=== PATIENT | female | born 1955 | race Caucasian/White ===

== ENCOUNTER 2022-09-01 10:29 | Emergency (ER) | payer OTHER, SELFPAY ==
[2022-09-01 10:38] VITALS: BP 106/73; BP 114/76; PULSE 101; PULSE 103; RESP 18; TEMP 37; O2SAT 95; O2SAT 97; BMI 19.8
--- NOTE | 2022-09-01 10:46 | PC.NURSE ---
pt alert/oriented. reporting very itchy rash on abdomen/flank and arms for several days. No mouth/tongue swelling noted, pt speaking in full sentences and not having any difficulty breathing. Pt reports SOB due to COPD vitals stable. IV inserted by EMS. Pt reports when rash is itching pain is 10/10
[2022-09-01 10:53] VITALS: BP 106/73; PULSE 97; RESP 18; TEMP 37
--- NOTE | 2022-09-01 11:16 | ED.ALLEREA ---
HPI - Allergic Reaction General Chief complaint: Allergic Reaction Stated complaint: ALLERGIC REACTION X2 DAYS,RASH FACE/TORSO PER EMS Time Seen by Provider: 09/01/22 10:44 Source: patient, EMS, RN notes reviewed and old records reviewed Mode of arrival: ambulatory History of Present Illness HPI narrative: 67-year-old female with past medical history of COPD, lung CA, presenting to the ED complaining of pruritic rash to bilateral arms, scalp, and body x 5 days s/p using new exfoliative. Reports sore throat x3 days, resolved at present. Also reports SOB in the morning secondary to her chronic COPD, unchanged. Denies other new exposures/medications, lotions or detergents, known insect bites, SOB/CP at present, sore throat, difficulty swallowing, cough MD complaint: allergic reaction Onset (ago): day(s) Related Data Previous Rx's Medication Instructions Recorded cetirizine 10 mg capsule (Zyrtec) 10 mg PO DAILY PRN allergy 09/01/22 symptoms #14 caps diphenhydramine HCl 25 mg capsule 25 mg PO TID PRN allergic reaction 09/01/22 (Benadryl) #14 caps prednisone 20 mg tablet 40 mg PO DAILY 2 days #4 tabs 09/01/22 Allergies Allergy/AdvReac Type Severity Reaction Status Date / Time No Known Allergies Allergy Verified 09/01/22 11:18 Review of Systems Review of Systems: Constitutional: No Fever, No Chills ENT/Mouth: No Ear Pain, No Nasal Congestion, No Hoarseness, No sore throat, No Rhinorrhea, No Swallowing Difficulty Cardiovascular: No Chest Pain, No SOB Respiratory: No Cough, No Sputum, No Wheezing Gastrointestinal: No Nausea, No Vomiting, No Diarrhea, No Constipation, No Abdominal pain Genitourinary: No Dysuria, No Urinary Frequency, No Hematuria, No Flank Pain Musculoskeletal: No joint pain, No Myalgias, No Joint Swelling Skin: No Skin Lesions, + rash Neuro: No Weakness, No Numbness, No Paresthesias Yes all other systems are reviewed and are negative Constitutional: Constitutional: Reports as per HPI [facility] Past Medical History Attestation statement: The following information was validated with the patient. Medical History COPD (chronic obstructive pulmonary disease) Lung cancer Social History Social History Alcohol intake: never Smoked in Last 30 Days: No Use of substances other than those prescribed or required for medical reasons: Yes Substance Use Type: Marijuana Substance Use Frequency: Occasionally Advance Directives: Yes Advance Directives on File: No Physical Exam ED Vital Signs: Vital Signs - 24 hr 09/01/22 10:38 09/01/22 10:53 Temperature 98.6 F 98.6 F Pulse Rate 101 H 97 Respiratory Rate 18 18 Blood Pressure 106/73 106/73 Pulse Oximetry 97 Oxygen Delivery Method Room Air Room Air BMI result Body Mass Index 19.8 Const General: cooperative, healthy appearing, no acute distress, alert and awake Orientation/consciousness: patient oriented x3 Limitations: no limitations HENMT Head: Yes normal to inspection and Yes atraumatic Ears: hearing grossly normal bilaterally General nose exam: Normal external nose present Face and sinus: Yes normal facial exam Mouth: Normal oral and palatal mucosa present Throat: Yes posterior oropharynx normal, Yes tonsils normal, Yes uvula midline, No peritonsillar mass, No uvula laterally displaced and No uvular edema Eyes General: appearance normal, both eyes and all related structures EOM: EOMs intact bilaterally Neck Neck: Yes normal visual inspection and Yes no meningeal signs Resp Effort & Inspection: normal respiratory effort and no respiratory distress Auscultation: clear to auscultation bilaterally, no crackles, no rales, no rhonchi and no wheezes Cardio Rate: regular rate Heart sounds: S1 normal heart sound present and S2 normal heart sound present GI Inspection: Yes normal to inspection Palpation (GI): Soft to palpation, nontender, no guarding and not rigid Skin Other: + hives noted to bilateral upper extremities and upper back. + excoriations noted to chest. No mucous membrane or palm/sole involvement. No sloughing. No warmth Wounds: no wounds Neuro General: patient oriented x3, tone normal and no meningeal signs Gait exam (Neuro): Normal gait present Extrem General: Yes normal to inspection Course Course Course Narrative: -1242--on re-evaluation patient reports symptomatic improvement. Requesting discharge home. Will DC home with 2 additional days of prednisone, Benadryl, Pepcid recommended close PCP follow-up and discontinuation of new exfoliate. Results discussed with patient including worrisome signs and symptoms and strict return precautions, and when to return to the emergency department. They verbalized understanding and feel safe for discharge at this time. Medications Administered Discontinued Medications Generic Name Dose Route Start Last Admin Trade Name Luisa PRN Reason Stop Dose Admin Diphenhydramine HCl 25 mg 09/01/22 11:41 09/01/22 11:44 Diphenhydramine Hcl 50 Mg/Ml Vial IVPUSH 09/01/22 11:42 25 mg ONCE ONE Administration Famotidine 20 mg 09/01/22 11:18 09/01/22 11:47 Famotidine/Pf 20 Mg/2 Ml Vial IVPUSH 09/01/22 11:19 20 mg ONCE ONE Administration Methylprednisolone Sodium Succinate 125 mg 09/01/22 11:18 09/01/22 11:43 Methylprednisolone Sod Succ 125 Mg/2 Ml Vial IVPUSH 09/01/22 11:19 125 mg ONCE ONE Administration Medical Decision Making Medical Decision Making MDM Narrative: 67-year-old female with past medical history of COPD, lung CA, presenting to the ED complaining of pruritic rash to bilateral arms, scalp, and body x 5 days s/p using new exfoliative. On exam vital signs stable, NAD, nontoxic appearing, oropharynx WNL, uvula midline, talking in complete sentences, handling secretions, lungs CTA. + urticaria/hives noted to bilateral upper extremities and back with excoriations to chest. No sloughing or mucous membrane involvement. Concern for allergic reaction. No evidence of anaphylaxis. Low suspicion for cellulitis Patient received 25 mg of IV Benadryl the EMS plan: IV Solu-Medrol, Benadryl, Pepcid, re-evaluate Please refer to course for remaining clinical decision making, interpretation of labs/imaging results, and discussions with consultants and/or family members. Differential Diagnosis Differential Diagnoses: The differential diagnosis associated with the presentation includes As above Admission/Observation Consideration of admission/observation: Escalation of care including admission/observation considered Lab Data [facility] Lab Attestation statement: I reviewed the patient's lab results. Radiology Impression Discussion of test interpretation with radiology: I have reviewed the radiologist's reading. External Record Review External record reviewed: Inpatient record, Office record, Outpatient record, Prior outpatient labs, Prior outpatient radiology, Primary care record and Outside ED record Discharge Plan Discharge Clinical Impression: Allergic reaction Patient Disposition: Home, Self-Care Instructions: General Allergic Reaction (ED) Additional Instructions: Please avoid new exfoliate which is likely cause of her symptoms Take Benadryl as needed. In addition Zyrtec, Zyrtec will not make you drowsy, Benadryl will make you drowsy, do not drive, drink alcohol, or operate anything while taking Benadryl Take prednisone as prescribed for the next 2 days If symptoms persist or worsen you develop any shortness of breath, throat closing sensation, cough, difficulty breathing return to the ED immediately Prescriptions: New diphenhydramine HCl [Benadryl] 25 mg capsule 25 mg PO TID PRN (Reason: allergic reaction) Qty: 14 0RF Zyrtec 10 mg capsule 10 mg PO DAILY PRN (Reason: allergy symptoms) Qty: 14 0RF prednisone 20 mg tablet 40 mg PO DAILY 2 Days Qty: 4 0RF Referrals: [facility] [Primary Care Provider] - Interventions: ED Discharge Assessment Last Done: 09/01/22 13:28 Discharge Date/Time: 09/01/22 13:28
--- NOTE | 2022-09-01 11:41 | PC.NURSE ---
EMS gave Benadryl 25mg. provider aware.
[2022-09-01] MEDS: methylPREDNISolone Sod Succ 125 MG/2 ML VIAL IVPUSH (11:43)
[2022-09-01] MEDS: diphenhydrAMINE HCL 50 MG/ML VIAL 25 MG IVPUSH (11:44)
[2022-09-01] MEDS: Famotidine/PF 20 MG/2 ML VIAL IVPUSH (11:47)
--- NOTE | 2022-09-01 11:56 | PC.NURSE ---
report given to Teresa CONTRERAS. pt will be going upstairs with transport
== END 2022-09-01 13:28 | disposition home or self-care (01) ==
PROVIDERS: Emergency Provider Emergency Medicine
DX: L50.0 Allergic urticaria (principal); Z79.899 Other long term (current) drug therapy
CPT/HCPCS: 96374; 96375; 99284; J1200; J2930

== ENCOUNTER 2023-06-25 19:16 | Emergency (ER) | payer OTHER, SELFPAY ==
--- NOTE | ~2023-06-25 | XR_ITS ---
Examination: Left shoulder and chest. CLINICAL INDICATION: Fall. COMPARISON: None. TECHNIQUE: Left shoulder 3 views. Chest 2 views. FINDINGS: Left shoulder: The glenohumeral and AC joint is intact. There is a fracture involving lateral clavicle minimal displacement. There is mild soft tissue swelling. Incidental finding of mild left pleural thickening and patchy density with a staple within left upper lobe likely chronic scarring or postoperative changes. CHEST: The lungs are well-expanded and clear acute pneumonic process. There is mild left apical pleural thickening. There is a small surgical staple with left upper lobe density likely chronic scarring or postoperative change. Heart size and pulmonary vascularity is normal. No gross bony abnormality seen. XR/XR shoulder LT min 2V IMPRESSION: 1. Left lateral clavicle fracture with minimal displacement. There is mild soft tissue swelling. 2. No acute process seen in the chest. There is mild left apical pleural thickening. 3. Left upper lobe scarring or postoperative changes. There is a small surgical staple with left upper lobe density.
--- NOTE | ~2023-06-25 | XR_ITS ---
Examination: Left shoulder and chest. CLINICAL INDICATION: Fall. COMPARISON: None. TECHNIQUE: Left shoulder 3 views. Chest 2 views. FINDINGS: Left shoulder: The glenohumeral and AC joint is intact. There is a fracture involving lateral clavicle minimal displacement. There is mild soft tissue swelling. Incidental finding of mild left pleural thickening and patchy density with a staple within left upper lobe likely chronic scarring or postoperative changes. CHEST: The lungs are well-expanded and clear acute pneumonic process. There is mild left apical pleural thickening. There is a small surgical staple with left upper lobe density likely chronic scarring or postoperative change. Heart size and pulmonary vascularity is normal. No gross bony abnormality seen. XR/XR chest 2V IMPRESSION: 1. Left lateral clavicle fracture with minimal displacement. There is mild soft tissue swelling. 2. No acute process seen in the chest. There is mild left apical pleural thickening. 3. Left upper lobe scarring or postoperative changes. There is a small surgical staple with left upper lobe density.
--- NOTE | ~2023-06-25 | CT_ITS ---
CT HEAD WITHOUT IV CONTRAST CT CERVICAL SPINE WITHOUT IV CONTRAST INDICATION: Fall with head strike and pain. COMPARISON: None available. TECHNIQUE: Multidetector CT acquisitions of the head and cervical spine were obtained without IV contrast. Multiplanar reformats were acquired and utilized for image interpretation. This CT examination was performed using dose optimization techniques as appropriate, variously including the following: *Automated exposure control *Adjustment of mA and/or kV according to patient size (this includes techniques or standardized protocols for targeted exams where dose is matched to indication/reason for exam; i.e. 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 There is no intracranial hemorrhage, hydrocephalus, extra-axial surface collection, midline shift, or other herniation pattern. Kim to white matter differentiation is diffusely maintained without evidence of an evolved acute territorial infarct. The basilar cisterns are preserved. No significant soft tissue abnormality. No acute osseous abnormality. The paranasal sinuses and the mastoid air cells are well aerated. CERVICAL SPINE: There are no acute fractures and there are no acute subluxations within the cervical spine. ACDF hardware at C5-C6 with solid appearing interbody arthrodesis. There is a partially imaged surgical clip within the upper left lung with adjacent airspace opacity that should be correlated for any clinical history of pulmonary malignancy surgery and compared to outside chest imaging if available. CT/CT cervical spine wo IV con IMPRESSION: - No acute intracranial abnormality. - No acute osseous abnormality within the cervical spine. ACDF at C5-C6. - There is a partially imaged surgical clip within the upper left lung with adjacent airspace opacity that should be correlated for any clinical history of pulmonary malignancy surgery and compared to outside chest imaging if available.
[2023-06-25 20:19] VITALS: BP 139/95; PULSE 85; RESP 18; TEMP 36.8; O2SAT 98; BMI 17.3
--- NOTE | 2023-06-25 20:26 | ECG_ITS ---
Test Reason : FALL Blood Pressure : / mmHG Vent. Rate : 078 BPM Atrial Rate : 078 BPM P-R Int : 158 ms QRS Dur : 084 ms QT Int : 388 ms P-R-T Axes : 080 033 069 degrees QTc Int : 442 ms Normal sinus rhythm Possible Left atrial enlargement Borderline ECG No previous ECGs available Referred By: Generic ED Physician Electronically Signed By:TOM MONTOYA MD
--- NOTE | 2023-06-25 20:33 | ED.FALL ---
HPI - Fall General Chief Complaint: Fall Stated Complaint: fell,laceration left eye,dizziness Time Seen by Provider: 06/25/23 22:47 Source: patient Mode of arrival: ambulatory Limitations: no limitations History of Present Illness HPI Narrative: Patient comes to the emergency room complaining of a fall. Patient states that she has noticed that a week after her dose of Effexor was increased from 75 mg 250 mg, she has been feeling lightheaded and falling often. Patient states that she has probably fallen about 6 times in the last 2 weeks. Patient is usually able to get up and continue with her day. Today, patient had to crawl to the couch to get up. Patient states that she has left clavicular pain. Patient hit her head and has a laceration lateral to the left eyebrow. Patient complaining of clavicular pain, no headache, no neck pain. Patient states that she does not have any chest pain or shortness of breath, no palpitations, no calf pain. No hip pain Related Data Previous Rx's Medication Instructions Recorded cetirizine 10 mg capsule (Zyrtec) 10 mg PO DAILY PRN allergy 09/01/22 symptoms #14 caps diphenhydramine HCl 25 mg capsule 25 mg PO TID PRN allergic reaction 09/01/22 (Benadryl) #14 caps prednisone 20 mg tablet 40 mg (2 x 20 mg) PO DAILY 2 days 09/01/22 #4 tabs venlafaxine 75 mg capsule,extended 75 mg PO DAILY #10 caps 06/25/23 release 24 hr (Effexor XR) Allergies Allergy/AdvReac Type Severity Reaction Status Date / Time No Known Allergies Allergy Verified 06/25/23 20:19 Review of Systems Review of Systems: Constitutional : No Weight loss, No Fever, No Chills, No Night Sweats, No Fatigue, No Malaise ENT/Mouth : No Hearing loss, No Ear Pain, No Nasal Congestion, No Sinus Pain, No Hoarseness, No sore throat, No Rhinorrhea, No Swallowing Difficulty Eyes: No Eye Pain, No Swelling, No Redness, No Foreign Body, No Discharge, No Vision Changes Cardiovascular : No Chest Pain, No SOB, No Dyspnea on Exertion, No Orthopnea, No Edema, No Palpitations Respiratory : No Cough, No Sputum, No Wheezing, No Smoke Exposure, No Dyspnea Gastrointestinal : No Nausea, No Vomiting, No Diarrhea, No Constipation, No abdominal Pain, No Hematochezia, No Melena Genitourinary : no irregular bleeding, No Dysuria, No Urinary Frequency, No Hematuria, No Urinary Incontinence, No Urgency, No Flank Pain, No Urinary Flow Changes, No Hesitancy Musculoskeletal : No joint pain, No Myalgias, No Joint Swelling Skin : Laceration Neuro : No Weakness, No Numbness, No Paresthesias, No Loss of Consciousness, No Dizziness, multiple episodes of lightheadedness and falls Psych : No Anxiety/Panic, No Depression, No SI/HI/AH/VH, No Social Issues, Heme/Lymph: No Bruising, No Bleeding,No Lymphadenopathy Endocrine : No Polyuria, No Polydipsia, No Temperature Intolerance [facility] Past Medical History Medical History Lung cancer COPD (chronic obstructive pulmonary disease) Social History Social History Alcohol intake: never Substance Use Type: Marijuana Advance Directives: No Advance Directives Information Provided: No Physical Exam Vital Signs: Vital Signs: Last Vital Signs Temp 98.3 F 06/25/23 20:19 Pulse 85 06/25/23 20:19 Resp 18 06/25/23 20:19 BP 139/95 H 06/25/23 20:19 Pulse Ox 98 06/25/23 20:19 O2 Del Method Room Air 06/25/23 20:19 BMI result Body Mass Index 17.3 Const: Other: Appearance: Alert. Oriented X3. No acute distress. Eyes: Pupils equal, round and reactive to light. ENT: Pharynx normal. Neck: Normal inspection. Neck supple. No lymph nodes noted. No crepitus, no C-spine tenderness, no palpable step-offs CVS: Normal heart rate and rhythm. Pulses normal. Normal S1 and S2 Respiratory: No respiratory distress. Breath sounds normal. No Wheezing. No rales Abdomen: Soft and nontender. No rigidity. No distention. Skin: Skin warm and dry. Normal skin color. Normal skin turgor. 1.5 cm laceration to the lateral aspect of the left eyebrow Extremities: No lower extremity edema. No Lacerations. No Rash Neuro: Oriented X 3. No motor deficit. No sensory deficit. Moving all extremities. No slurred speech. CN 2 through 12 grossly intact Psych: calm, cooperative, normal affect Course Course Course Narrative: This is a rapid medical exam. deferrd additional HPI, ROS, PE to primary provider. 68 yo female here with positional dizziness, frequent falls x 2 weeks with recent med changes. Fall today with strike to left shoulder, head. No LOC. NO AC therapy use. Will obtain labs, EKG, CT head/cervical spine, shoulder x-ray VSS Medications Administered Discontinued Medications Generic Name Dose Route Start Last Admin Trade Name Luisa PRN Reason Stop Dose Admin Lidocaine HCl 5 ml 06/25/23 23:06 06/25/23 23:13 Lidocaine Hcl 2 % Mpf 5 Ml Vial INFILTRATI 06/25/23 23:07 Not Given ONCE ONE Lidocaine HCl 5 ml 06/25/23 23:13 06/25/23 23:15 Lidocaine Hcl 1 % Mpf 5 Ml Vial INFILTRATI 06/25/23 23:14 5 ml ONCE ONE Administration Procedures Laceration Laceration 1: Site: face Side (If applicable): left Size (cm): 1.5 Description: linear Depth: simple, single layer Local Anesthetic: lidocaine 1% Amount of anesthesia used (mL): 2 Skin layer closed with: nylon Size (cm): 6-0 Number of sutures: 4 Technique: simple, interrupted Medical Decision Making Medical Decision Making [facility] Narrative: -patient was given 1 dose of p.o. Tylenol -laceration was repaired, well tolerated -discussed with the patient to return to her previous dose of Effexor as this is likely the cause of her being lightheaded. Patient states she has an appointment pending tomorrow with her therapist, they will discuss the dose. - Differential Diagnosis Differential Diagnoses: The differential diagnosis associated with the presentation includes (ACS, medication side effect, orthostatic hypotension) Admission/Observation Consideration of admission/observation: Escalation of care including admission/observation considered Lab Data [facility] Lab Attestation statement: I reviewed the patient's lab results. 06/25/23 21:25 06/25/23 21:25 Labs: Lab Results 06/25/23 Range/Units 21:25 WBC 9.8 (4.8-10.8) X10*3/uL RBC 4.14 L (4.20-5.50) X10*6/uL Hgb 12.4 (12.0-16.0) g/dl Hct 36.4 L (37.0-47.0) % MCV 87.9 (80.0-98.0) fL MCH 30.0 (27.0-33.0) pg MCHC 34.1 (31.0-35.0) g/dl RDW 13.5 (11.0-16.0) % Plt Count 259 (160-400) X10*3/uL MPV 10.8 (9.4-12.3) fL Immature Gran % (Auto) 0.4 (0.0-0.4) % Neut % (Auto) 82.3 H (45-73) % Lymph % (Auto) 9.5 L (20-40) % Piatt % (Auto) 7.0 (2-11) % Eos % (Auto) 0.3 (0-4) % Baso % (Auto) 0.5 (0-2) % Lymph # (Auto) 0.9 L (1.2-4.9) X10*3/uL Piatt # (Auto) 0.7 (0.1-1.2) X10*3/uL Eos # (Auto) 0.0 (0.0-0.4) X10*3/uL Baso # (Auto) 0.1 (0.0-0.2) X10*3/uL Abs Immat Gran (auto) 0.04 H (0.00-0.03) X10*3/uL Absolute Neuts (auto) 8.1 (2.0-8.3) x10*3/uL Absolute Nucleated RBC 0.000 (0.0-0.012) X10*3/uL Nucleated RBC % (auto) 0.0 (0.0-0.2) /100WBC Sodium 140 (135-145) mmol/L Potassium 4.1 (3.3-5.1) mmol/L Chloride 106 (96-108) mmol/L Carbon Dioxide 24 (22-29) mmol/L Anion Gap 14 (12-20) BUN 22 H (9-16) mg/dL Creatinine 0.87 (0.5-1.4) mg/dL Estim Creat Clear Calc 48.1 Estimated GFR > 60 Random Glucose 105 (60-115) mg/dL Calcium 9.5 (8.4-10.2) mg/dL Total Bilirubin 0.4 (0.0-1.0) mg/dL AST 12 (5-31) U/L ALT 7 (0-31) U/L Alkaline Phosphatase 64 (39-117) U/L Troponin I High Sens < 2.7 (<3.5-17.0) ng/L Total Protein 7.2 (6.5-8.0) g/dL Albumin 4.2 (3.5-5.0) g/dL Independent Interpretation I performed an independent interpretation of an: EKG (My interpretation of EKG: Normal sinus rhythm, heart rate 78, no ST segment depression or elevation, no T-wave inversion, QTC 442) Radiology Impression Discussion of test interpretation with radiology: I have reviewed the radiologist's reading. Critical Care Time Critical Care Time Total Critical Care Time: 45 Discharge Plan Discharge Clinical Impression: Eyebrow laceration, Fx clavicle, Dizziness Patient Disposition: Home, Self-Care Instructions: Clavicle Fracture (ED), Laceration (ED) Additional Instructions: Your stitches need to be removed in 7-10 days. Please follow-up with orthopedics and with your primary care physician as soon as possible. If you have any worsening or new symptoms, please return to the emergency room or call 911 Prescriptions: New venlafaxine [Effexor XR] 75 mg capsule,extended release 24hr 75 mg PO DAILY Qty: 10 0RF No Action diphenhydramine HCl [Benadryl] 25 mg capsule 25 mg PO TID PRN (Reason: allergic reaction) Qty: 14 0RF Zyrtec 10 mg capsule 10 mg PO DAILY PRN (Reason: allergy symptoms) Qty: 14 0RF prednisone 20 mg tablet 40 mg PO DAILY 2 Days Qty: 4 0RF Referrals: Gillian Avina MD [Physician] - 06/29/23
[2023-06-25 21:30] LABS: MANUAL DIFF FLAG NO
[2023-06-25 21:37] LABS: Basophils Absolute Auto 0.1 X10*3/uL (0.0-0.2); Basophils Percent Auto 0.5 % (0-2); Eosinophils Percent Auto 0.3 % (0-4); Hematocrit 36.4 % (37.0-47.0); Hemoglobin 12.4 g/dl (12.0-16.0); Imm Gran Abs Auto 0.04 X10*3/uL (0.00-0.03); Imm Gran Pct Auto 0.4 % (0.0-0.4); Lymphocytes Absolute Auto 0.9 X10*3/uL (1.2-4.9); Lymphocytes Percent Auto 9.5 % (20-40); Mean Corpuscular HGB Conc 34.1 g/dl (31.0-35.0); Mean Corpuscular Volume 87.9 fL (80.0-98.0); Mean Platelet Volume 10.8 fL (9.4-12.3); Monocytes Absolute Auto 0.7 X10*3/uL (0.1-1.2); Neutrophils Absolute Auto 8.1 x10*3/uL (2.0-8.3); Neutrophils Percent Auto 82.3 % (45-73); Platelet Count 259 X10*3/uL (160-400); Red Blood Count 4.14 X10*6/uL (4.20-5.50); Red Cell Distribution Width 13.5 % (11.0-16.0); White Blood Count 9.8 X10*3/uL (4.8-10.8)
[2023-06-25 21:45] LABS: Alanine Aminotransferase 7 U/L (0-31); Albumin Level 4.2 g/dL (3.5-5.0); Alkaline Phosphatase 64 U/L (39-117); Anion Gap 14 (12-20); Aspartate Amino Transferase 12 U/L (5-31); Bilirubin Total 0.4 mg/dL (0.0-1.0); Blood Urea Nitrogen 22 mg/dL (9-16); Calcium 9.5 mg/dL (8.4-10.2); Carbon Dioxide 24 mmol/L (22-29); Chloride 106 mmol/L (96-108); Creatinine Clr Calc Pharmacy 48.1; Estimated Glomerular Filt Rate > 60; Glucose Random 105 mg/dL (60-115); Potassium 4.1 mmol/L (3.3-5.1); Sodium 140 mmol/L (135-145); Total Protein 7.2 g/dL (6.5-8.0)
[2023-06-25 21:52] LABS: Troponin-I High Sensitivity < 2.7 ng/L (<3.5-17.0)
--- NOTE | 2023-06-25 22:56 | PC.NURSE ---
PT REPORTS INCREASED DOSAGE IN MEDICATIONS WHICH WERE 1 WEEK BEFORE DIZZINESS STARTED. PT REPORTS HAS HAD FALLS WITH DIZZINESS. LAST FALL TODAY 1730 FROM STANDING POSITION; LACERATION TO L. EYE AND L. SHOULDER PAIN. PT REPORTS SHE CRAWLED TO THE RECLINER AND GOT HERSELF UP. PT REPORTS 5-6 FALLS IN PAST 2 WEEKS; I HIT MY HEAD A FEW TIMES. PT DENIES BLOOD THINNERS. DR. CAMPOS AT BEDSIDE LACERATION CLEANED PLAN FOR STITCHES. PT EDUCATED ON LAB RESULTS/CT SCAN AND XRAY. PT AWARE NEEDS SLING. CONVERSATION ABOUT HOME CARE PT STATES SHE HAS ENOUGH HELP AND WOULD LIKE TO GO HOME. PT REPORTS PAIN 10/10 L SHOULDER HOWEVER REQUESTS ONLY TYLENOL TO DR CAMPOS.
[2023-06-25] MEDS: Lidocaine HCl 1 % MPF 5 ML VIAL INFILTRATI (23:15)
[2023-06-26 00:15] VITALS: BP 174/108; PULSE 77
[2023-06-26 00:16] VITALS: BP 154/100; BP 164/106; PULSE 77; PULSE 86
[2023-06-26 00:27] LABS: Appearance Urine Cloudy; Color Urine Yellow; Glucose Urine UA Negative (Negative); Leukocyte Esterase Urine Small (1+) (Negative); Nitrite Urine Positive (Negative); PH 5.5 (5.0-9.0); Specific Gravity - Urine 1.025 (1.005-1.025); UMIC TRIGGER UACC YES; Urine Blood Negative (Negative); Urine Ketones 15 mg/dL (Negative); Urine Protein 30 (1+) mg/dL (Neg-Trace)
[2023-06-26 00:32] LABS: Bacteria Urine 4+ (None Seen); RBC Urine 0-2 /HPF (0-2); UACC Culture Trigger YES; WBC Urine 21-50 /HPF (0-5)
[2023-06-26] MEDS: Acetaminophen 325 MG TABLET 975 MG PO (01:07)
[2023-06-26 01:17] VITALS: TEMP 36.9
[2023-06-26] MEDS: cefuroxime axetiL 250 MG TABLET PO (01:20)
== END 2023-06-26 01:36 | disposition home or self-care (01) ==
PROVIDERS: Nurse Practitioner Family; Emergency Provider Emergency Medicine
DX: S01.112A Laceration without foreign body of left eyelid and periocular area, initial encounter (principal); S42.002A Fracture of unspecified part of left clavicle, initial encounter for closed fracture; R94.31 Abnormal electrocardiogram [ECG] [EKG]; R51.9 Headache, unspecified; M54.2 Cervicalgia; R07.89 Other chest pain; M25.512 Pain in left shoulder; W01.10XA Fall on same level from slipping, tripping and stumbling with subsequent striking against unspecified object, initial encounter; Y93.9 Activity, unspecified; Y92.9 Unspecified place or not applicable; Y99.8 Other external cause status; Z79.899 Other long term (current) drug therapy
CPT/HCPCS: 36415; 70450; 71046; 72125; 73030; 80053; 81001; 84484; 85025; 87086; 87088; 87186; 93005; 99285

== ENCOUNTER → 2023-06-25 20:26 | Outpatient (BNV) | payer OTHER, SELFPAY | PROVIDERS: Emergency Provider Emergency Medicine; Visit Provider Internal Medicine Cardiovascular Disease | DX: R26.81 Unsteadiness on feet (principal); R42 Dizziness and giddiness | CPT/HCPCS: 93010 ==

== ENCOUNTER 2023-07-03 14:10 | Outpatient (AMB) | payer OTHER, SELFPAY ==
--- NOTE | 2023-07-03 14:14 | MHC.OFFVIS ---
Intake Vital Signs 07/03/23 14:22 Weight 110 lb Intake Visit Reasons: FC- LT clavicle fx Intake Note: Lazara a 68 year old female presents today for an ER follow up of left clavicle fracture, DOI 06/25/23. Patient reports after her dose of Effexor was increased from 75 mg to 250 mg, she has been feeling lightheaded and falling. She presented to [facility] ED where xrays and referred to orthopedics. Her dizziness has improved, her dosage was lowered. Currently she continues to have ongoing pain and stiffness in her shoulder. States difficulty with sleeping at night. She takes Aleve in the mornings which provide her with some relief. Allergies No Known Allergies Allergy (Verified 07/03/23 14:28) Medication List - Last Reconciled 07/11/23 by Jose L Bucio PA-C cefuroxime axetil 250 mg PO BID cetirizine (Zyrtec) 10 mg PO DAILY PRN diphenhydramine HCl (Benadryl) 25 mg PO TID PRN lorazepam mg PO prednisone 40 mg (2 x 20 mg) PO DAILY 2 days venlafaxine ER (Effexor XR) 75 mg PO DAILY HPI FC- LT clavicle fx HPI Details 68-year-old female who presents to the office today for an ER follow-up of left clavicle injury s/p feeling lightheaded after her dose of Effexor was increased from 75 mg to 250 mg and sustaining a fall, 06/25/23. She was seen at ED where x-rays were performed and she was referred to our office. She reports her dizziness has improved and her dosage was lowered. She currently states she has ongoing pain and stiffness in her shoulder which makes her difficult to sleep at night. She takes Aleve in the mornings which provide her mild relief. [facility] Medical History (Updated 07/11/23 @ 22:19 by Jose L Bucio PA-C) Lung cancer COPD (chronic obstructive pulmonary disease) Surgical History History of lung surgery History of bladder surgery Social History (Updated 07/03/23 @ 14:22 by TOÑITO Cano) Alcohol intake: never Patient Tobacco Use Status: Never used Tobacco Substance Use Type: Marijuana Current occupational status: disabled Current occupation: right hand dominant Review of Systems Const All systems reviewed & are unremarkable except as noted in HPI and below Physical Exam Const General: cooperative and no acute distress Orientation/consciousness: patient oriented x3 Resp Effort & Inspection: normal respiratory effort and able to speak in complete sentences Cardio Peripheral pulses: Peripheral pulses 2+ throughout Neuro General: patient oriented x3 Extrem Other: Left clavicle: Skin is intact. No skin tenting or skin breakdown. No obvious bony deformity. Mild tenderness to palpation over the fracture site. Anterior deltoid sensation is intact. Full ROM of elbow with no pain. No pain along the forearm. Negative squeeze test. No pain along the distal radius. NVI. Office Procedures Fracture Care Fracture Billing Code: Fracture Billing Code Results Reviewed Results Reviewed: xrays of the left shoulder obtained on 06/25/23 IMPRESSION: 1. Left lateral clavicle fracture with minimal displacement. There is mild soft tissue swelling. 2. No acute process seen in the chest. There is mild left apical pleural thickening. 3. Left upper lobe scarring or postoperative changes. There is a small surgical staple with left upper lobe density. Assessment & Plan Assessment & Plan (1) Closed left clavicular fracture: Code(s): S42.002A - Fracture of unspecified part of left clavicle, initial encounter for closed fracture Qualifiers: Encounter type: initial encounter Clavicle location: lateral end Fracture alignment: displaced Qualified Code(s): S42.032A - Displaced fracture of lateral end of left clavicle, initial encounter for closed fracture Plan She was fit for a sling in the office today which she will use with going out in public and sleeping. She will avoid any type of overhead reaching and repetitive motions. She will see me back in 4-6 weeks, with new xrays, sooner if needed. Patient Instructions: Scribed for Jose L Bucio PA-C, by Jean Claude Boss medical billing instructor, on 07/03/2023 at 2:30 PM EST. IJose L PA-C, have personally reviewed and agree with the information entered by the scribe. Coding Level of Care Code New Pt Level 3 (01396) Diagnoses Closed displaced fracture of acromial end of left clavicle, initial encounter S42.032A Encounter type: initial encounter Clavicle location: lateral end Fracture alignment: displaced CPT Codes Fracture Care - Fracture Billing Code: Fracture Billing Code ([id number])
== END 2023-07-03 14:59 | disposition home or self-care (01) ==
PROVIDERS: Visit Provider Physician Assistant
DX: S42.032A Displaced fracture of lateral end of left clavicle, initial encounter for closed fracture (principal)
CPT/HCPCS: 99203

== ENCOUNTER → 2023-07-03 14:10 | Outpatient (BNVA) | payer OTHER, SELFPAY | PROVIDERS: Visit Provider Physician Assistant ==

== ENCOUNTER 2023-08-06 06:40 | Outpatient (REF) | payer OTHER, SELFPAY | END 2023-08-06 06:41 | disposition home or self-care (01) | LOC: HO.HOSX 06:40 | PROVIDERS: Visit Provider Physician Assistant | DX: Z13.89 Encounter for screening for other disorder (principal) ==

== ENCOUNTER 2024-05-24 15:39 | Emergency (ER) | payer MEDICARE, SELFPAY ==
--- NOTE | ~2024-05-24 | CT_ITS ---
CLINICAL HISTORY: fall w neck pain CT cervical spine without contrast Comparison: CT/SR - CT CERVICAL SPINE WO IV CON - 06/25/23 20:37 EST Findings: Prior anterior metallic fusion C5-C6. Appropriate alignment. No evidence of hardware failure. There are changes of mild multilevel degenerative disc disease. There is also facet osteoarthritis, most pronounced on the right at C4-C5. Mild central canal narrowing at C5-C6. Narrowing of the right neural foramen at C4-C5. No acute fractures or dislocations. Visualized intracranial contents are unremarkable. No cervical fluid collections or masses. There is scarring at the left lung apex. IMPRESSION: No acute findings. This document has been electronically signed by: Darcy Nagel MD on 05/24/2024 16:57:17
--- NOTE | ~2024-05-24 | CT_ITS ---
CLINICAL HISTORY: fall w head strike CT head without contrast Comparison: CT/SR - CT HEAD/BRAIN WO IV CON - 06/25/23 20:37 EST Findings: There is a new small focus of chronic appearing infarction within the right parietal lobe. 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 Remaining brain volume is age-appropriate. There is moderate white matter disease. No significant atrophy-like change or white matter disease. The visualized paranasal sinuses and mastoid air cells are normal. The orbits are unremarkable. There is no acute fracture. IMPRESSION: No skull fracture or intracranial hemorrhage. This document has been electronically signed by: Dacry Nagel MD on 05/24/2024 16:59:55
--- NOTE | 2024-05-24 15:51 | ECG_ITS ---
Test Reason : fall Blood Pressure : */* mmHG Vent. Rate : 79 BPM Atrial Rate : 79 BPM P-R Int : 142 ms QRS Dur : 80 ms QT Int : 354 ms P-R-T Axes : 77 34 60 degrees QTcB Int : 405 ms Normal sinus rhythm Normal ECG When compared with ECG of 25-Jun-2023 21:16, No significant change was found Referred By: Steph Cali Electronically Signed By: TOM MONTOYA MD
[2024-05-24 15:52] VITALS: BP 172/109; PULSE 88; RESP 16; TEMP 36.4; O2SAT 95; BMI 17.7
--- NOTE | 2024-05-24 15:52 | ED.FALL ---
HPI - Fall General Chief Complaint: Fall Stated Complaint: Fall - head injury, shakiness Related Data Home Medications ?Medication ?Instructions ?Recorded ?Confirmed lorazepam 0.5 mg tablet mg PO 07/03/23 07/11/23 Previous Rx's ?Medication ?Instructions ?Recorded cetirizine 10 mg capsule (Zyrtec) 10 mg PO DAILY PRN allergy 09/01/22 symptoms #14 caps diphenhydramine HCl 25 mg capsule 25 mg PO TID PRN allergic reaction 09/01/22 (Benadryl) #14 caps prednisone 20 mg tablet 40 mg (2 x 20 mg) PO DAILY 2 days 09/01/22 #4 tabs venlafaxine 75 mg capsule,extended 75 mg PO DAILY #10 caps 06/25/23 release 24 hr (Effexor XR) cefuroxime axetil 250 mg tablet 250 mg PO BID #14 tabs 06/26/23 cefuroxime axetil 250 mg tablet 250 mg PO BID 7 days #14 tabs 05/25/24 Allergies Allergy/AdvReac Type Severity Reaction Status Date / Time No Known Allergies Allergy Verified 05/24/24 15:56 [facility] Past Medical History Medical History (Updated 05/26/24 @ 00:00 by Mildred Jaquez) Lung cancer COPD (chronic obstructive pulmonary disease) Surgical History History of lung surgery History of bladder surgery Social History Social History (Updated 07/03/23 @ 14:22 by TOÑITO Cano) Alcohol intake: never Patient Tobacco Use Status: Never used Tobacco Substance Use Type: Marijuana Advance Directives: No Advance Directives Information Provided: Yes Current occupational status: disabled Current occupation: right hand dominant Physical Exam Vital Signs: Vital Signs: Last Vital Signs Temp 97.6 F 05/24/24 15:52 Pulse 88 05/24/24 15:52 Resp 16 05/24/24 15:52 BP 172/109 H 05/24/24 15:52 Pulse Ox 95 05/24/24 15:52 O2 Del Method Room Air 05/24/24 15:52 BMI result Body Mass Index 17.7 Course Course Course Narrative: This is a Rapid Medical Examination (RME) performed by Evette Cali PA-C in triage. Full HPI, ROS, assessment and treatment plan per primary provider in the Main ED. 69 yo female with history of small cell lung cancer 8 years ago, hx UTI in the past (w/ confusion) presents to the ER for evaluation of headache and left sided neck pain after she fell at home on Thursday after standing up and becoming dizzy. She reports a month of lightheadedness and dizziness with standing. No loss of consciousness and she is not on anticoagulation. history of a fall in the past when she had a UTI. she reports hallucinating recently seeing her friend who . In triage she is AAO x3, appears well. no hallucinations. hypertensive and afebrile. denies dizziness. Plan: CT head and cervical spine, EKG, labs, orthostatic VS Reevaluation(s) Reevaluation #1: patient left without completing treatment yesterday her UA is positive for infection, although may be contaminated w/ squamous cells. given her reports of hallucinations and weakness would empirically treat while awaiting urine culture. attempted to call the number on file (daughter) x2 with no response. will send abx to pharmacy and attempt call again later Reevaluation #2: Called and left message with patient's daughter about patient's E coli UTI requiring treatment with antibiotics. Antibiotics have been sent to her pharmacy however she has been unable to be contacted to inform her of this. Will send a certified letter today Time: 07:26 Medical Decision Making Lab Data 05/24/24 16:08 05/24/24 16:08 Labs: Lab Results 05/24/24 05/24/24 Range/Units 16:08 16:31 WBC 6.9 (4.8-10.8) X10*3/uL RBC 4.09 L (4.20-5.50) X10*6/uL Hgb 12.3 (12.0-16.0) g/dl Hct 36.6 L (37.0-47.0) % MCV 89.5 (80.0-98.0) fL MCH 30.1 (27.0-33.0) pg MCHC 33.6 (31.0-35.0) g/dl RDW 14.5 (11.0-16.0) % Plt Count 240 (160-400) X10*3/uL MPV 11.0 (9.4-12.3) fL Immature Gran % (Auto) 0.4 (0.0-0.4) % Neut % (Auto) 73.6 H (45-73) % Lymph % (Auto) 16.7 L (20-40) % [place] % (Auto) 7.4 (2-11) % Eos % (Auto) 1.3 (0-4) % Baso % (Auto) 0.6 (0-2) % Lymph # (Auto) 1.2 (1.2-4.9) X10*3/uL [place] # (Auto) 0.5 (0.1-1.2) X10*3/uL Eos # (Auto) 0.1 (0.0-0.4) X10*3/uL Baso # (Auto) 0.0 (0.0-0.2) X10*3/uL Abs Immat Gran (auto) 0.03 (0.00-0.03) X10*3/uL Absolute Neuts (auto) 5.1 (2.0-8.3) x10*3/uL Absolute Nucleated RBC 0.000 (0.0-0.012) X10*3/uL Nucleated RBC % (auto) 0.0 (0.0-0.2) /100WBC Sodium 139 (135-145) mmol/L Potassium 4.2 (3.3-5.1) mmol/L Chloride 108 (96-108) mmol/L Carbon Dioxide 21 L (22-29) mmol/L Anion Gap 14 (12-20) BUN 20 H (9-16) mg/dL Creatinine 1.00 (0.5-1.4) mg/dL Estim Creat Clear Calc 39.8 Estimated GFR 55 Random Glucose 149 H (60-115) mg/dL Calcium 9.1 (8.4-10.2) mg/dL Magnesium 2.0 (1.6-2.6) mg/dL Total Bilirubin 0.2 (0.0-1.0) mg/dL Direct Bilirubin < 0.2 (0.0-0.5) mg/dL AST 22 (5-31) U/L ALT 11 (0-31) U/L Alkaline Phosphatase 59 (39-117) U/L Troponin I High Sens < 2.7 (<3.5-17.0) ng/L Total Protein 7.4 (6.5-8.0) g/dL Albumin 4.1 (3.5-5.0) g/dL Urine Color Dark Yellow Urine Appearance Cloudy Urine pH 5.5 (5.0-9.0) Ur Specific [place] >= 1.030 H (1.005-1.025) Urine Protein 30 (1+) H (Neg-Trace) mg/dL Urine Glucose (UA) Negative (Negative) mg/dL Urine Ketones Trace (Negative) mg/dL Urine Blood Small (1+) H (Negative) Urine Nitrite Positive H (Negative) Ur Leukocyte Esterase Negative (Negative) Urine RBC 0-2 (0-2) /HPF Urine WBC 0-5 (0-5) /HPF Ur Squamous Epith Cells >20 (0-2) /HPF Urine Bacteria 4+ (None Seen) Hyaline Casts 0-2 (0-2) /LPF Discharge Plan Discharge Clinical Impression: Fall Patient Disposition: Left W/O Completing Treatment Prescriptions: New cefuroxime axetil 250 mg tablet 250 mg PO BID 7 Days Qty: 14 0RF No Action diphenhydramine HCl [Benadryl] 25 mg capsule 25 mg PO TID PRN (Reason: allergic reaction) Qty: 14 0RF Zyrtec 10 mg capsule 10 mg PO DAILY PRN (Reason: allergy symptoms) Qty: 14 0RF prednisone 20 mg tablet 40 mg PO DAILY 2 Days Qty: 4 0RF venlafaxine [Effexor XR] 75 mg capsule,extended release 24hr 75 mg PO DAILY Qty: 10 0RF cefuroxime axetil 250 mg tablet 250 mg PO BID Qty: 14 0RF lorazepam 0.5 mg tablet PO Discharge Date/Time: 05/24/24 20:43
[2024-05-24 16:14] LABS: Basophils Percent Auto 0.6 % (0-2); Eosinophils Absolute Auto 0.1 X10*3/uL (0.0-0.4); Eosinophils Percent Auto 1.3 % (0-4); Hematocrit 36.6 % (37.0-47.0); Hemoglobin 12.3 g/dl (12.0-16.0); Imm Gran Abs Auto 0.03 X10*3/uL (0.00-0.03); Imm Gran Pct Auto 0.4 % (0.0-0.4); Lymphocytes Absolute Auto 1.2 X10*3/uL (1.2-4.9); Lymphocytes Percent Auto 16.7 % (20-40); MANUAL DIFF FLAG NO; Mean Corpuscular HGB Conc 33.6 g/dl (31.0-35.0); Mean Corpuscular Hemoglobin 30.1 pg (27.0-33.0); Mean Corpuscular Volume 89.5 fL (80.0-98.0); Monocytes Absolute Auto 0.5 X10*3/uL (0.1-1.2); Monocytes Percent Auto 7.4 % (2-11); Neutrophils Absolute Auto 5.1 x10*3/uL (2.0-8.3); Neutrophils Percent Auto 73.6 % (45-73); Platelet Count 240 X10*3/uL (160-400); Red Blood Count 4.09 X10*6/uL (4.20-5.50); Red Cell Distribution Width 14.5 % (11.0-16.0); White Blood Count 6.9 X10*3/uL (4.8-10.8)
[2024-05-24 16:38] LABS: Appearance Urine Cloudy; Color Urine Dark Yellow; Glucose Urine UA Negative (Negative); Leukocyte Esterase Urine Negative (Negative); Nitrite Urine Positive (Negative); PH 5.5 (5.0-9.0); Specific Gravity - Urine >= 1.030 (1.005-1.025); UMIC TRIGGER UACC YES; Urine Blood Small (1+) (Negative); Urine Ketones Trace mg/dL (Negative); Urine Protein 30 (1+) mg/dL (Neg-Trace)
[2024-05-24 16:40] LABS: Alanine Aminotransferase 11 U/L (0-31); Albumin Level 4.1 g/dL (3.5-5.0); Alkaline Phosphatase 59 U/L (39-117); Anion Gap 14 (12-20); Aspartate Amino Transferase 22 U/L (5-31); Bilirubin Direct < 0.2 mg/dL (0.0-0.5); Bilirubin Total 0.2 mg/dL (0.0-1.0); Blood Urea Nitrogen 20 mg/dL (9-16); Calcium 9.1 mg/dL (8.4-10.2); Carbon Dioxide 21 mmol/L (22-29); Chloride 108 mmol/L (96-108); Creatinine Clr Calc Pharmacy 39.8; Estimated Glomerular Filt Rate 55; Glucose Random 149 mg/dL (60-115); Potassium 4.2 mmol/L (3.3-5.1); Sodium 139 mmol/L (135-145); Total Protein 7.4 g/dL (6.5-8.0)
[2024-05-24 16:42] LABS: Troponin-I High Sensitivity < 2.7 ng/L (<3.5-17.0)
[2024-05-24 16:55] LABS: Bacteria Urine 4+ (None Seen); Hyaline Casts Urine 0-2 /LPF (0-2); RBC Urine 0-2 /HPF (0-2); Squamous Epithelial Cell Urine >20 /HPF (0-2); UACC Culture Trigger YES; WBC Urine 0-5 /HPF (0-5)
--- OUTSIDE RECORDS SUMMARY | 2024-05-24 17:58 | XMS_ITS | Patient Health Record ---
Author Organization [facility] Address [address] [place] [address] Care Team Providers Care Letter Carrier Name Role Phone MAYANK BLACK Unavailable [phone] Reason For Referral No Information Medications Medication SIG (Take, Route, Frequency, Duration) Notes Start Date End Date Status QUEtiapine Fumarate Not-Taking Venlafaxine HCl ER 37.5 MG 1 capsule with food Orally Once a day Active LORazepam 0.5 MG 1 tablet at bedtime as needed Orally Once a day Active Venlafaxine HCl ER 75 MG 1 capsule with food Orally At bed time Active Social History Tobacco Use: Social History Observation Description Date Details (start date - stop date) Former Smoker NA - NA Tobacco Use/Smoking Question Answer Notes Are you a former smoker How long has it been since y ou last smoked? 5-10 years Additional Findings: Tobacco Non-User Ex-heavy c igarette smoker (20-30/day) Alcohol Screen (Audit-C) Question Answer Notes Did you have a drink contain ing alcohol in the past year? Yes How often did you have a dri nk containing alcohol in the past year? Monthly or less (1 point) How many drinks did you have on a typical day when you were drinking in the past year? 1 or 2 drinks (0 point) How often did you have 6 or more drinks on one occasion in the past year? Never (0 point) Points 1 Interpretation Negative Sexual History Question Answer Notes Had sex in the past 12 months (vaginal, oral, or anal)? No Have you ever had a Sexually transmitted disease ? 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
== END 2024-05-24 20:43 | disposition left against medical advice (07) ==
PROVIDERS: Physician Assistant; Emergency Provider Emergency Medicine
DX: S09.90XA Unspecified injury of head, initial encounter (principal); R51.9 Headache, unspecified; N39.0 Urinary tract infection, site not specified; M54.2 Cervicalgia; R42 Dizziness and giddiness; R41.0 Disorientation, unspecified; R44.1 Visual hallucinations; X58.XXXA Exposure to other specified factors, initial encounter; Y93.9 Activity, unspecified; Y92.9 Unspecified place or not applicable; Y99.8 Other external cause status; Z79.899 Other long term (current) drug therapy
CPT/HCPCS: 36415; 70450; 72125; 80048; 80076; 81001; 83735; 84484; 85025; 87086; 87088; 87186; 93005; 99282; 99284

== ENCOUNTER → 2024-05-24 15:51 | Outpatient (BNV) | payer MEDICARE, SELFPAY | PROVIDERS: Emergency Provider Emergency Medicine; Visit Provider Internal Medicine Cardiovascular Disease | DX: R42 Dizziness and giddiness (principal) | CPT/HCPCS: 93010 ==

== ENCOUNTER → 2024-05-24 15:51 | Outpatient (BNV) | payer MEDICARE, SELFPAY | PROVIDERS: Visit Provider Radiology Diagnostic Radiology | DX: M54.2 Cervicalgia (principal); S09.90XA Unspecified injury of head, initial encounter | CPT/HCPCS: 70450; 72125 ==